=== PATIENT | female | born 1990 | race Caucasian/White ===

== ENCOUNTER 2018-12-30 09:28 | Outpatient (CLI) | payer BC, SELFPAY ==
[2018-12-30 11:11] LABS: TSH (W/Ref FT4) 1.81 uIU/mL (0.358-3.74)
== END 2018-12-30 09:48 ==
PROVIDERS: Visit Provider Nurse Practitioner Family
DX: N91.5 Oligomenorrhea, unspecified (principal)
CPT/HCPCS: 36415; 84443

== ENCOUNTER 2019-07-19 12:01 | Outpatient (CLI) | payer BC, MEDICAID, SELFPAY ==
[2019-07-19 12:49] LABS: Abs Immature Grans 0.01 k/cumm (0.0-0.09); Absolute Basophil Count 0.02 k/cumm (0.0-0.2); Absolute Eosinophil Count 0.08 k/cumm (0.0-0.7); Absolute Lymphocyte Count 1.92 k/cumm (1.2-3.4); Absolute Monocyte Count 0.31 k/cumm (0.11-0.7); Absolute Neutrophil Count 4.16 k/cumm (1.2-6.7); Basophils % 0.3; Eosinophils % 1.2; HCT 39.1 % (36.0-46.0); HGB 13.5 g/dL (12.0-15.5); Immature Grans % 0.2; Lymphocytes % 29.5; Mean Corp. HGB Concentration 34.5 g/dL (32.0-36.0); Mean Corpuscular Volume 89.9 fL (80-95); Mean Platelet Volume 9.2 fL (8.0-11.0); Monocytes % 4.8; Platelet Count 280 x1000/uL (130-400); RBC 4.35 m/cumm (4.00-5.20); RBC Distribution Width 11.8 % (11.7-14.6)
[2019-07-19 13:09] LABS: Glucose,1 Hr (Glucola) 111 mg/dL (80-140)
[2019-07-20 10:25] LABS: Hepatitis B Surface Ag Negative (Negative)
[2019-07-20 11:00] LABS: HIV-1/2 Ag & Ab Screen Negative (Negative)
[2019-07-20 11:16] LABS: Hepatitis C Ab w Rflx HCV PCR Negative (Negative)
[2019-07-20 11:50] LABS: Rubella IgG Ab (UVM) Positive (See Note); Varicella IgG Antibody Positive (See Note)
[2019-07-20 16:13] LABS: Syphilis Total Ab w/Reflex Nonreactive (Nonreactive)
== END 2019-07-19 12:21 ==
PROVIDERS: Visit Provider Advanced Practice Midwife
DX: Z34.91 Encounter for supervision of normal pregnancy, unspecified, first trimester (principal); Z11.4 Encounter for screening for human immunodeficiency virus [HIV]; Z11.59 Encounter for screening for other viral diseases; Z01.84 Encounter for antibody response examination
CPT/HCPCS: 36415; 80307; 82950; 86787; 86803; 86850; 86900; 86901; 87340; 87389; 85025; 86762; 86780

== ENCOUNTER 2019-07-19 14:23 | Outpatient (REF) | payer BC, MEDICAID, SELFPAY ==
[2019-07-19 13:30] LABS: *AMPHETAMINES SCREEN URINE Negative (Negative); *BARBITURATES SCREEN URINE Negative (Negative); *BENZODIAZEPINES SCREEN URINE Negative (Negative); Cannabinoids THC Negative (Negative); Cocaine Screen,Urine Negative (Negative); METHADONE URINE SCREEN Negative (Negative); OPIATES URINE SCREEN Negative (Negative)
[2019-07-19 13:37] LABS: Tricyclic Antidepressants Negative (Negative)
[2019-07-20 12:50] LABS: Chlamydia Result Negative (Negative)
[2019-07-20 16:11] LABS: GC Result Negative (Negative)
[2019-07-25 11:09] LABS: Buprenorphine Negative; Norbuprenorphine Negative
== END 2019-07-19 14:43 ==
LOC: LBN 14:23
PROVIDERS: Visit Provider Advanced Practice Midwife
DX: Z34.91 Encounter for supervision of normal pregnancy, unspecified, first trimester (principal); Z11.3 Encounter for screening for infections with a predominantly sexual mode of transmission
CPT/HCPCS: 80307; 87491; 87591; 87086; 87480; 87510; 87660

== ENCOUNTER 2019-10-05 02:29 | Outpatient (CLI) | payer BC, MEDICAID, SELFPAY ==
--- NOTE | 2019-10-05 13:45 | DI.US_ITS ---
EXAM: US OB 2-3 TRIMESTER CLINICAL HISTORY: ROUTINE PNC Z34.90 SUPERVISION NORMAL . TECHNIQUE: Transabdominal obstetrical ultrasound performed. COMPARISON: OB US 2-3 TRIMESTER TRANSABD*P from 09/05/2016 FINDINGS: Transabdominal obstetrical ultrasound performed. There is a single living intrauterine gestation. The estimated sonographic age is 19 weeks 1 day. T he fetus is in the breech position. No abnormalities are identified sonographically. he art rate is 152 beats per minute. The placenta is anterior. The tip of the placenta lies at the internal os. No evidence of previa. IMPRESSION: 1. Single live intrauterine gestation as above. 2. Low-lying placenta. The placental tip lies at the internal os. No evidence of previa. Monitorin g of placental location is recommended.
[2019-10-07 15:20] LABS: AFP 59.5 ng/mL; Calculated age at EDD 30 years; Cigarette smoking status non-Smoker; GA used in risk estimate Scan estimate; INHIBIN 163 pg/mL; IVF Pregnancy No; Initial or repeat testing Initial testing; Insulin dependent diabetes No; Maternal Weight 194 lbs; Number of Fetuses 1; Physician Phone Number 802-748-7300; Prev Down(T21)/Trisomy Pregnan No; Prev Pregnancy w/NTD No; RECOMMENDED FOLLOW UP None.; Results Summary Normal risk; hCG, TOTAL 11.4 IU/mL; uE3 1.79 ng/mL; uE3 MoM 1.21 MoM
== END 2019-10-05 02:49 ==
PROVIDERS: PCP Advanced Practice Midwife; Visit Provider Advanced Practice Midwife
DX: O44.42 Low lying placenta NOS or without hemorrhage, second trimester (principal); Z36.89 Encounter for other specified antenatal screening; Z3A.19 19 weeks gestation of pregnancy
CPT/HCPCS: 36415; 81511; 76805

== ENCOUNTER 2019-11-02 10:28 | Outpatient (REF) | payer BC, MEDICAID, SELFPAY | END 2019-11-02 10:48 | LOC: LBN 10:28 | PROVIDERS: PCP Advanced Practice Midwife; Visit Provider Advanced Practice Midwife | DX: Z34.92 Encounter for supervision of normal pregnancy, unspecified, second trimester (principal); Z87.440 Personal history of urinary (tract) infections | CPT/HCPCS: 87086 ==

== ENCOUNTER 2019-12-08 00:26 | Outpatient (CLI) | payer BC, MEDICAID, SELFPAY ==
--- NOTE | 2019-12-08 10:27 | DI.US_ITS ---
EXAM: US OB F/U FACIAL/LVOT/RVOT CLINICAL HISTORY: placenta location, f/up for low lying,044.42,modified to protocol. COMPARISON: US OB 2-3 TRIMESTER from 10/05/2019 TECHNIQUE: Transabdominal obstetrical ultrasound was performed. FINDINGS: Sonographic images demonstrate a single intrauterine gestation in cephalic position. Placenta: The placenta is anterior. The edge of the placenta is at least 5 centimeters from the inte rnal os. heart rate motion is Dopplered at: 157 bpm. Cervical length 4.3 cm. Amount of fluid is within normal limits. IMPRESSION: The placenta is no longer low lying, measuring greater than 5 cm from the os.. DATA REPOSITORY:
== END 2019-12-08 00:46 ==
PROVIDERS: PCP Advanced Practice Midwife; Visit Provider Advanced Practice Midwife
DX: O44.42 Low lying placenta NOS or without hemorrhage, second trimester (principal); Z36.2 Encounter for other antenatal screening follow-up; Z3A.27 27 weeks gestation of pregnancy
CPT/HCPCS: 76815

== ENCOUNTER 2019-12-08 10:28 | Outpatient (REF) | payer BC, MEDICAID, SELFPAY ==
[2019-12-08 10:53] LABS: Glucose,1 Hr (Glucola) 150 mg/dL (80-140)
[2019-12-08 10:59] LABS: HCT 35.2 % (36.0-46.0); HGB 11.6 g/dL (12.0-15.5); Mean Corpuscular Hemoglobin 30.4 pg (27.0-33.0); Mean Corpuscular Volume 92.1 fL (80-95); Mean Platelet Volume 9.6 fL (8.0-11.0); Platelet Count 262 x1000/uL (130-400); RBC 3.82 m/cumm (4.00-5.20); RBC Distribution Width 12.9 % (11.7-14.6); White Blood Cell Count 8.82 k/cumm (4.4-10.8)
== END 2019-12-08 10:48 ==
LOC: LBN 10:28
PROVIDERS: PCP Advanced Practice Midwife; Visit Provider Advanced Practice Midwife
DX: Z34.92 Encounter for supervision of normal pregnancy, unspecified, second trimester (principal)
CPT/HCPCS: 82950; 85027

== ENCOUNTER 2019-12-12 08:17 | Outpatient (CLI) | payer BC, MEDICAID, SELFPAY ==
[2019-12-12 10:11] LABS: Glucose 1 Hour 182 mg/dL
[2019-12-12 12:42] LABS: Glucose 3 Hour 156 mg/dL
== END 2019-12-12 08:37 ==
PROVIDERS: Advanced Practice Midwife; PCP Advanced Practice Midwife; Visit Provider Advanced Practice Midwife
DX: R73.09 Other abnormal glucose (principal)
CPT/HCPCS: 82951

== ENCOUNTER 2019-12-28 01:55 | Outpatient (CLI) | payer BC, MEDICAID, SELFPAY ==
--- NOTE | 2019-12-28 06:30 | DI.US_ITS ---
EXAM: US OB BILL WEIGHT CLINICAL HISTORY: GESTATIONAL DIABETES, O24.419 TECHNIQUE: Ultrasound performed using standard protocol. COMPARISON: US US OB F/U FACIAL/LVOT/RVOT from 12/08/2019 FINDINGS: Ob ultrasound was performed utilizing 3rd trimester protocol. There is a single fetus in cephalic pr esentation. There is visually a normal quantity of amniotic fluid and the BILL is 18. Placenta is anterior with no evidence of placenta previa. biometry is consistent with gestational age of 31 weeks 2 days and EDC of 02/27/2020. The estimated weight is 1786 grams which is at the 66th percentile for predicted gestational ag e. heart rate was 137 BPM. IMPRESSION: DATA REPOSITORY:
--- NOTE | 2020-01-03 15:17 | DIABASSESS_ITS ---
DESCRIPTION/ASSESSMENT: Barbra followed up with sql report writer. Food Log continues to to indicate higher then recommended intakes of simple carbohydrates such as corn, rolls, cupcakes, sweet potatoes and ice cream. Fasting sugars routinely > 100 mg/dl, post pranial sugars running around 140 mg/dl. Barbra is following [id number] kcal meal plan with 175-200 g carbohydrate with focus of consistent carb intake at all meals. She does not have routine exercise. Educated her on importance of exercise in treating GDM. Encouraged her to walk 20 minutes daily and to follow her meal plan. INTERVENTION: Educated Barbra on importance of exercise and carb counting for treating GDM along with insulin. Reviewed risks of elevated fasting sugars to and importance of reducing intake of high sugar foods and to balance carbohydrates with adequate amounts of protein and vegetables. ACTION PLAN: Continue 2200 kcal diet plan walk 20 minutes daily continue to follow up with MD/RD with blood sugar and diet logs
--- NOTE | 2020-01-12 15:27 | W.DIABETESNO ---
Date of service: 01/12/20 Time of Service: 15:28 Diabetes Note NOTE: Spok with Barbra about her diet and GDM. She is 32 weeks , up 20 lbs. She has BMI>30, Family Hx of DM and failed glucola, had 3 positives with 3 hr GTT. She reports that her fasting numbers have improved but continue to run 102-105 mg/dl, post prandial > 135 gm/dl. She attributes high numbers due to eating burgers, fries, birthday cake. She has not started to walk daily. She is taking 6 units of insulin in Am, 16 units HS. I encouraged her to limit simple carbs and gave her meal suggestions and problem solving for when she goes to cook outs. Encouraged her to walk 10 min twice daily. Continues to be compliant with taking BS, taking insulin but is having a hard time following optimal meal plan for optimal blood sugar control and unable to maintain her blood sugars in ideal ranges. May need additional insulin if unable to make diet changes. Will continue to support and encourage. Time Spent in Nutritional Counseling and Treatment: 10 min
== END 2019-12-28 02:15 ==
PROVIDERS: PCP Advanced Practice Midwife; Visit Provider Obstetrics & Gynecology
DX: O24.419 Gestational diabetes mellitus in pregnancy, unspecified control (principal); Z3A.31 31 weeks gestation of pregnancy
CPT/HCPCS: 76816

== ENCOUNTER 2020-01-27 02:08 | Outpatient (CLI) | payer BC, MEDICAID, SELFPAY ==
--- NOTE | 2020-01-23 14:21 | W.DIABETESNO ---
Date of service: 01/23/20 Time of Service: 14:21 Diabetes Note NOTE: Spoke to Barbra. GDM 35 weeks. Insulin adjusted at recent visit. Now taking 10 units NPH SQ AM, 20 u NPH SQ PM. Fasting BS improved and ranging from 88-104 mg/dl. PP readings at 1 hour, ranging from 103-174 mg/dl. High PP BS reading correspond to high carb meals. Reviewed optimal carb amounts per meal and encouraged walking after meals for 10 min to help reduce PP levels. Will continue to encourage and support. Forwarded BS logs to team. Next visit 01/29/20 at 1400. Time Spent in Nutritional Counseling and Treatment: 10 min
--- NOTE | 2020-01-27 08:00 | DI.US_ITS ---
EXAM: US OB BILL WEIGHT CLINICAL HISTORY: growth,O24.419. TECHNIQUE: Transabdominal obstetrical ultrasound performed. COMPARISON: US US OB BILL WEIGHT from 12/28/2019 FINDINGS: There is a single intrauterine gestation. Estimated sonographic age is 35 weeks 4 days. The fetus i s in the cephalic presentation. The heart rate is 152 beats per minute. A please anatom ic evaluation was not performed at this examination. Amniotic fluid index is 16.6 cm. The placenta is unremarkable. Estimated weight is 2750 g which is the 68th percentile. IMPRESSION: 1. Single live intrauterine gestation as above. DATA REPOSITORY:
--- NOTE | 2020-01-27 14:53 | DIABASSESS_ITS ---
Met with Barbra at [facility]. She is 34 weeks with GDM. Insulin increased to 12 units NPH AM, 22 units pm this week. Fasting sugars range from 91-106 mg/dl. Post pranial BS range from 104-173 mg/dl. Elevated blood sugars noted after high carbohydrate content meals. Continue to encourage following 2000- 2200 kcal GDM meal plan, avoid high glycemic foods and encourage daily exercise. Barbra continues to choose to include high glycemic foods (such as cheese burger with poutine, Ice cream, chicken nuggets and fries, Tuna mac and other desserts. She also does not engage in daily exercise. Meeting with MD today to discuss potential increase in insulin as many of her readings are out of range. Reviewed dangers to herself/baby with elevated blood sugars and risks for developing DM in future if continues to include these foods on regular basis. Will continue to follow and be available prn.
== END 2020-01-27 02:28 ==
PROVIDERS: PCP Nurse Practitioner Family; Visit Provider Obstetrics & Gynecology
DX: O24.419 Gestational diabetes mellitus in pregnancy, unspecified control (principal); Z3A.35 35 weeks gestation of pregnancy
CPT/HCPCS: 76816

== ENCOUNTER 2020-01-31 10:38 | Outpatient (CLI) | payer BC, MEDICAID, SELFPAY | END 2020-01-31 10:58 | PROVIDERS: PCP Nurse Practitioner Family; Visit Provider Obstetrics & Gynecology | DX: O24.415 Gestational diabetes mellitus in pregnancy, controlled by oral hypoglycemic drugs (principal); Z3A.35 35 weeks gestation of pregnancy | CPT/HCPCS: 59025 ==

== ENCOUNTER 2020-02-03 11:11 | Outpatient (CLI) | payer BC, MEDICAID, SELFPAY | END 2020-02-03 11:31 | PROVIDERS: PCP Nurse Practitioner Family; Visit Provider Obstetrics & Gynecology | DX: O24.414 Gestational diabetes mellitus in pregnancy, insulin controlled (principal); Z3A.36 36 weeks gestation of pregnancy | CPT/HCPCS: 59025; 87081 ==

== ENCOUNTER 2020-02-07 10:12 | Outpatient (CLI) | payer BC, MEDICAID, SELFPAY | END 2020-02-07 10:32 | PROVIDERS: PCP Nurse Practitioner Family; Visit Provider Obstetrics & Gynecology Gynecology | DX: O24.414 Gestational diabetes mellitus in pregnancy, insulin controlled (principal); Z3A.36 36 weeks gestation of pregnancy | CPT/HCPCS: 59025 ==

== ENCOUNTER 2020-02-10 15:30 | Inpatient (IN) | payer BC, MEDICAID, SELFPAY ==
[2020-02-10] MEDS: Lactated Ringers 500 ML IV (17:23)
[2020-02-10 17:25] LABS: HCT 36.9 % (36.0-46.0); HGB 12.7 g/dL (12.0-15.5); Mean Corp. HGB Concentration 34.4 g/dL (32.0-36.0); Mean Corpuscular Hemoglobin 31.1 pg (27.0-33.0); Mean Corpuscular Volume 90.2 fL (80-95); Mean Platelet Volume 9.9 fL (8.0-11.0); Platelet Count 266 x1000/uL (130-400); RBC 4.09 m/cumm (4.00-5.20); White Blood Cell Count 13.63 k/cumm (4.4-10.8)
[2020-02-10] MEDS: FentaNYL/ROPIvacaine 2 mcg/ml and 0.1% 200 ML CADD Cassette EP (17:50)
[2020-02-10] MEDS: Acetaminophen 325 MG TAB 650 MG PO (22:52)
[2020-02-10] MEDS: Ibuprofen 600 MG TAB PO (22:52)
[2020-02-11] MEDS: Acetaminophen 325 MG TAB 650 MG PO ×3 (04:36→21:23)
[2020-02-11] MEDS: Ibuprofen 600 MG TAB PO ×3 (07:33→21:23)
--- NOTE | 2020-02-11 10:08 | PDOC.ANES ---
Date of service: 02/11/20 Time of Service: 10:09 Anesthesia Note Report Anesthesia Note: Called to evaluate intrathecal catheter for concerns of leak and spinal headache. Entered room to find pt. sitting up smiling holding . Pt. states mid forehead has a very mild headache that does not change with change of posture. Pt. did have a positive dural puncture with epidrual attempt where catheter was placed into intrathecal space. Noted small leak at the cap at the distal end of the spinal catheter, dressing/insertion site dry and dressed. Removed filter, cleaned connection and placed occlusive cap on catheter which stopped small leak. Plan is to remove catheter later tonight and then begin to assess for spinal headache PDPH. I discussed treatment options with patient who would like to try a sphenopalatine block first and then an epidural blood patch if needed.
[2020-02-11 13:55] LABS: COVID-19 RT-PCR UVMMC Result Negative (Negative)
[2020-02-11] MEDS: Docusate Sodium 100 MG CAP PO (17:33)
--- NOTE | 2020-02-11 18:41 | W.PM.PROGNOT ---
Date of Service Date of service: 02/11/20 Time of Service: 18:41 Assessment and Plan Assessment and plan (1) (normal spontaneous vaginal delivery): Status: Acute Assessment and plan: Uncomplicated course. Plan for discharge home tomorrow. (2) Gestational diabetes: Status: Acute Assessment and plan: Insulin was discontinued. We will continue check blood sugars postprandial during this admission. Plan for 2-hour GTT at 6 weeks Subjective Subjective Interval history since last seen: Doing well. No pain today. Minimal lochia No problems or concerns. Objective Objective Clinical Data: Vital Signs Pain Level 4 02/11/20 12:29 Intake & Output 02/10/20 02/11/20 02/11/20 23:59 11:59 23:59 Intake Total 500 / 500 Balance 500 / 500 Weight 208 lb Intake: IV 500 / 500 Laboratory Results WBC 13.63 k/cumm (4.4-10.8) H 02/10/20 17:15 RBC 4.09 m/cumm (4.00-5.20) 02/10/20 17:15 Hgb 12.7 g/dL (12.0-15.5) 02/10/20 17:15 Hct 36.9 % (36.0-46.0) 02/10/20 17:15 MCV 90.2 fL (80-95) 02/10/20 17:15 MCH 31.1 pg (27.0-33.0) 02/10/20 17:15 MCHC 34.4 g/dL (32.0-36.0) 02/10/20 17:15 RDW 13.0 % (11.7-14.6) 02/10/20 17:15 Plt Count 266 x1000/uL (130-400) 02/10/20 17:15 MPV 9.9 fL (8.0-11.0) 02/10/20 17:15 COVID-19 PCR Negative (Negative) 02/10/20 18:30 Nasopharyn COVID-19 PCR Not Applicable 02/10/20 18:30 Ref Test Perform Site [facility] 02/10/20 18:30 Patient ABO/Rh AB Positive 02/10/20 17:15 Antibody Screen Negative 02/10/20 17:15
--- NOTE | 2020-02-11 18:45 | PDOC.ANES ---
Date of service: 02/11/20 Time of Service: 18:46 Anesthesia Note Report Anesthesia Note: As planned and about 24 hours after placement of Intrathecal catheter placed for labor analgesia due to accidental dural puncture, intrathecal catheter has been removed with tip intact and gauze/bandaide placed over site. All motor and sensory exam has returned to baseline as intrathecal infusion was discontinued after delivery last night. Pt. has been ambulatory since and doing well with a 0-1/10 forehead headache at times for which she has been taking tylenol for with good results. Pt. advised to rest in bed for 2 hours and to minimize any activity that would result in abdominal strain and increased intrathecal pressure. Pt. will notify RN who will call anesthesia for moderate to severe headache, especially if worse when sitting/standing or for any motor/sensory deficits if noted. In the event that a PDPH requires treatment, Barbra would like to start with conservative measures-->sphenopalatine block-->Epidural blood patch if truly needed. If she is discharged, she is aware that she should call and speak to anesthesia if a concerning headache develops while at home. Barbra is on board and verbalized understanding on plan. Nursing staff also aware of plan.
[2020-02-12] MEDS: Ibuprofen 600 MG TAB PO ×2 (02:17→09:43)
[2020-02-12] MEDS: Acetaminophen 325 MG TAB 650 MG PO ×2 (02:17→09:43)
[2020-02-12] MEDS: Docusate Sodium 100 MG CAP PO (09:47)
--- NOTE | 2020-02-12 10:02 | W.PM.HP.N ---
Date of service: 02/10/20 Time of Service: 17:00 Assessment and Plan Assessment and plan (1) Normal labor: Status: Acute Assessment and plan: Admit for managment of active labor. (2) Gestational diabetes: Status: Acute History of Present Illness History of Present Illness Chief Complaint: Spontaneous labor Narrative: 29 year old @ 38 weeks gestation presented with regular and painful contractions with some light vaginal spotting beginning earlier this morning. On initial examination cx was 4 cm in dilatation and the patient progressed spontaneously thereafter. [facility] Social History Smoking/Tobacco Use Status: Never Household members: spouse, children and other Details: H-Jalen. 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 Date GA/Weeks # Outcome Route Wgt Sex Labor Lgth Anesthesia Location Prov Complic 01/05/17 35 No Successful vaginal 5 lb 13 oz Female [facility] [place] Delivery Date: 01/05/17 Carine Roe Home Medications and Allergies Home Medications Medication Instructions Recorded Confirmed Type prenat.vits,thomas,czg-tovk-uchul 1 tab PO DAILY #90 tab 06/30/19 01/27/20 Rx blood-glucose meter #1 each 12/12/19 01/27/20 Rx insulin NPH isoph U-100 human 100 6 unit SC QAM #3 ml 01/06/20 01/27/20 Rx unit/mL (3 mL) subcutaneous pen insulin NPH isoph U-100 human 100 See Rx Instructions SC .COMPLEX 01/06/20 01/27/20 Rx unit/mL (3 mL) subcutaneous pen #15 ml pen needle, diabetic 32 gauge x #200 each 01/30/20 Rx blood sugar diagnostic #50 each 02/02/20 Rx blood sugar diagnostic #50 each 02/02/20 Rx lancets 28 gauge #50 each 02/02/20 Rx Allergies Allergy/AdvReac Type Severity Reaction Status Date / Time SEASONAL ALLERGIES AdvReac Intermediate Uncoded 01/27/20 13:40 Exam Other: Cx /-1 Results Labs Result diagrams: 02/10/20 17:15 Labs: Laboratory Results - last 24 hr 02/10/20 18:30 COVID-19 PCR Negative Nasopharyn COVID-19 PCR Not Applicable Ref Test Perform Site [facility] COVID-19 Screening In the past 14 days, have you traveled outside of [place]?: NO
--- NOTE | 2020-02-12 10:21 | W.PM.PROGNOT ---
Date of Service Date of service: 02/12/20 Time of Service: 10:21 Assessment and Plan Assessment and plan (1) (normal spontaneous vaginal delivery): Status: Acute Assessment and plan: S/P Plan for discharge home today. Will discontinue blood sugars and management of diabetes. Plan for 2 hour GTT at 6 weeks. Subjective Subjective Interval history since last seen: Doing well this morning. Does have a moderate headache like from epidural. Has been seen by anesthesia and is felt suitable for discharge home. Objective Objective Clinical Data: Vital Signs Pain Level 4 02/12/20 09:43 Intake & Output 02/11/20 02/11/20 02/12/20 11:59 23:59 11:59 Intake Total 500 / 500 Balance 500 / 500 Intake: IV 500 / 500 Laboratory Results WBC 13.63 k/cumm (4.4-10.8) H 02/10/20 17:15 RBC 4.09 m/cumm (4.00-5.20) 02/10/20 17:15 Hgb 12.7 g/dL (12.0-15.5) 02/10/20 17:15 Hct 36.9 % (36.0-46.0) 02/10/20 17:15 MCV 90.2 fL (80-95) 02/10/20 17:15 MCH 31.1 pg (27.0-33.0) 02/10/20 17:15 MCHC 34.4 g/dL (32.0-36.0) 02/10/20 17:15 RDW 13.0 % (11.7-14.6) 02/10/20 17:15 Plt Count 266 x1000/uL (130-400) 02/10/20 17:15 MPV 9.9 fL (8.0-11.0) 02/10/20 17:15 COVID-19 PCR Negative (Negative) 02/10/20 18:30 Nasopharyn COVID-19 PCR Not Applicable 02/10/20 18:30 [facility] 02/10/[facility] 18:30 Patient ABO/Rh AB Positive 02/10/20 17:15 Antibody Screen Negative 02/10/20 17:15
== END 2020-02-12 12:15 | disposition home or self-care (01) | DRG 805 ==
LOC: OBS 16:09
PROVIDERS: Admitting Provider Obstetrics & Gynecology; PCP Nurse Practitioner Family; Visit Provider Obstetrics & Gynecology
DX: O24.424 Gestational diabetes mellitus in childbirth, insulin controlled (principal); O45.93 Premature separation of placenta, unspecified, third trimester; Z37.0 Single live birth; Z3A.37 37 weeks gestation of pregnancy; Z67.30 Type AB blood, Rh positive; Z87.51 Personal history of pre-term labor
CPT/HCPCS: 85027; 86850; 86900; 86901; 99223; 99233; U0003; 59025; G0378

== ENCOUNTER 2020-03-17 07:30 | Outpatient (CLI) | payer BC, MEDICAID, SELFPAY ==
[2020-03-18 17:25] LABS: COVID-19 RT-PCR Result NEGATIVE (Negative)
== END 2020-03-17 07:50 ==
PROVIDERS: PCP Nurse Practitioner Family; Visit Provider Obstetrics & Gynecology
DX: Z01.818 Encounter for other preprocedural examination (principal)
CPT/HCPCS: U0003

== ENCOUNTER 2020-03-19 02:05 | Outpatient (CLI) | payer BC, MEDICAID, SELFPAY | END 2020-03-19 02:25 | PROVIDERS: PCP Nurse Practitioner Family; Visit Provider Obstetrics & Gynecology | DX: Z01.818 Encounter for other preprocedural examination (principal) | CPT/HCPCS: 36415; 86850; 86900; 86901 ==

== ENCOUNTER 2020-03-21 07:39 | Day surgery (SDC) | payer BC, MEDICAID, SELFPAY ==
[2020-03-21] VITALS (8 sets, daily range): BP systolic 97–111; BP diastolic 59–77; PULSE 50–95; RESP 14–24; TEMP 36.2–36.4; O2SAT 94–98
[2020-03-21] MEDS: Lactated Ringers 1,000 ML 125 ML IV (08:26)
[2020-03-21] MEDS: Acetaminophen 500 MG TAB 1000 MG PO (08:57)
--- NOTE | 2020-03-21 09:35 | FALL_PTH ---
PATIENT: Barbra [place] LOC: [facility] U#:[id number] AGE/SX: 29/F ROOM: RE03/21/[address]: Lucius Gross MD : 1990 BED: DIS: 03/21/2020 SPEC #: [id number] RECD: 03/21/20 12:51 STATUS: JUDY RE #: [id number] CARIN: 03/21/20 09:[address]: Lucius Gross DEPT: Surgical Specimen RECD BY: Mary Martinez ENTERED: 03/21/20 12:52 SP TYPE: Fall OTHR DR: Devon Bajwa Tissues: 1 - FALLOPIAN TUBE (STERILIZATION) 2 - FALLOPIAN TUBE (STERILIZATION) Procedures: GROSS AND MICRO LEVEL 2 Comments: [id number]
[2020-03-21] MEDS: Bupivacaine 0.25% Pres-Free 30 ML VIAL (09:38)
--- NOTE | 2020-03-21 09:49 | ROE_ITS ---
Date of service: 03/21/20 Time of Service: 09:49 Operative Note Operative Note DATE OF PROCEDURE: 03/21/20 PRE-OP DIAGNOSIS: Multiparity and desire for permanent sterilization POST-OP DIAGNOSIS: same PROCEDURE: Laparoscopic bilateral salpingectomy SURGEON: Lucius Gross ASSISTING SURGEON: Ирина Markham ANESTHESIA: GETA ESTIMATED BLOOD LOSS: 10 PATHOLOGY: other (Bilateral fallopian tubes) COMPLICATIONS: None Patient was transported to: PACU Patient's condition: stable Findings: Normal laparoscopic examination Procedure Description: The patient was taken to the operating room and after adequate general anesthesia was obtained the patient had been placed in supine position. The patient prepped and draped in usual sterile manner. The skin and subcutaneous tissues at the umbilicus were infiltrated with 0.25% Marcaine solution. A small infraumbilical skin incision was then made with a #15 blade scalpel. Sharp dissection was carried down to the underlying layer fascia. The fascia was grasped and elevated with 2 Jana clamps and incised sharply with scalpel. The peritoneum was entered sharply with a hemostat. S retractors were placed. 2 sutures of 0 Vicryl were placed on either side of the fascial incision. A 10 mm balloon trocar was placed through the incision. A pneumop eritoneum to approximately 15 mmHg was established. Two 5 mm ports were placed under direct visualization in the right and left lower quadrants. The right fallopian tube was grasped and elevated with an atraumatic grasper. Dissection was carried across the mesosalpinx with the LigaSure device and care to the proximal fallopian tube which was transected. The fallopian tube was removed from the abdomen. Excellent hemostasis noted. A similar procedure was carried out on the opposite side. The 5 mm trochars were removed under direct visualization. The abdomen was desufflated and the umbilical port was removed. The fascia was closed at the umbilicus with the previously placed sutures of 0 Vicryl. Two additional sutures in [id number] fashion of 0 Vicryl were used to complete the repair. Each skin incision was closed with interrupted sutures of 4 Monocryl and Dermabond was applied. The procedure was concluded at this point. Sponge, lap and needle counts were correct at the conclusion of the procedure. The patient tolerated the procedure well and was transferred to PACU in stable condition.
--- NOTE | 2020-03-28 09:24 | W.PM.OP ---
Date of service: 03/21/20 Time of Service: 14:00 Operative Note Operative Note DATE OF PROCEDURE: 03/21/20 POST-OP DIAGNOSIS: same PROCEDURE: Laparoscopic bilateral salpingectomy SURGEON: Lucius Gross ASSISTING SURGEON: Ирина Markham ANESTHESIA: GETA ESTIMATED BLOOD LOSS: 10 PATHOLOGY: other (Bilateral fallopian tubes) COMPLICATIONS: None Patient was transported to: PACU Patient's condition: stable Implants: Laparoscopic bilateral salpingectomy Procedure Description: The patient was taken to the operating room and after adequate general anesthesia the patient had been placed in the supine position. The patient was prepped and draped in the usual sterile manner. The skin and subcutaneous tissues at the umbilicus were infiltrated with 0.25% Marcaine solution. A small infraumbilical skin incision was then made with a #15 scalpel. Sharp dissection was carried down to the underlying layer fascia. The fascia was grasped and elevated with 2 Jana clamps. The fascia was incised with a scalpel and the peritoneum was entered with hemostats. Two S retractors were placed. Two sutures of 0 Vicryl placed on either side of the fascial incision. A 10 mm balloon trocar was inserted and the abdomen was insufflated approximately 15 mmHg with carbon dioxide. Two 5 mm ports were placed in the right lower and left lower quadrants both under direct visualization. Dissection was first carried across the left mesosalpinx with the LigaSure device and taken to the proximal tube which was transected. The tube was removed from the abdomen. Excellent hemostasis was noted. Attention was then turned to the right fallopian tube were again dissection was carried across the mesosalpinx with the LigaSure. The tube was coagulated and transected at its proximately end and the tube was removed from the abdomen. Again excellent hemostasis was noted. The 5 mm trochars were removed under direct visualization. The abdomen was desufflated and the umbilical port was removed. The fascia at the umbilicus was closed with the 2 previously placed sutures of 0 Vicryl. Each skin incision was closed with interrupted sutures of 4 Monocryl and Dermabond was applied. The procedure was concluded at this point. Sponge, lap and needle counts were correct at the conclusion of the procedure. The patient was transferred to PACU in stable condition.
== END 2020-03-21 12:15 | disposition home or self-care (01) ==
PROVIDERS: PCP Nurse Practitioner Family; Visit Provider Obstetrics & Gynecology
PROC: (CPT 58661; principal; 2020-03-21 09:00)
DX: Z30.2 Encounter for sterilization (principal)
CPT/HCPCS: 58661; 81025; 88302; J1100; J1885; J2001; J2405; J3475

== ENCOUNTER → 2023-12-15 03:55 | Outpatient (CLI) | payer BC, SELFPAY ==
--- NOTE | 2023-12-15 13:36 | DI.MAMMO_ITS ---
Exam(s) US BREAST RT LIMITED MG MAMMO DIAGNOSTIC BI EXAM: MG MAMMO DIAGNOSTIC BI CLINICAL HISTORY: Right breast lump,PALPABLE, N63.10. COMPARISON: US US BREAST RT LIMITED from 12/15/2023 . baseline examination. TECHNIQUE: Craniocaudal and mediolateral oblique Full Field Digital Mammography views of both breast s with Computer Aided Diagnosis followed by Tomosynthesis and right breast ultrasound. FINDINGS: Mammography/Tomosynthesis: Masses/Architectural Distortion: None seen. Microcalcifications: No suspicious pleomorphic-type are seen. Skin Thickening/Nipple Retraction: None. Right breast US: Echotexture: Normal appearance of the glandular tissue. Shadowing: No suspicious foci. Cyst: Simple cyst measuring 11 x 4 by 10 millimeters. Solid lesions: None seen. Ductal dilation: None. IMPRESSION: 1. No evidence of malignancy is noted. 2. Unless there is more urgent need, follow-up screening mammography is recommended, as per [place] [employer] guidelines. BI-RADS Category 2 - Benign Findings Breast Density - Category B - Scattered areas of fibroglandular density Breast density category C or D implies that the patient has dense breast tissue. Dense breast tissue is very common and is not abnormal but dense breast tissue can make it harder to find cancer on a ma mmogram. Also, dense breast tissue may increase their breast cancer risk. This information about the result of the mammogram report was provided to the patient to raise their awareness. Use this report when you speak with the patient about their risks for breast cancer, which includes their family hist ory. At that time, you may recommend for more screening tests (Ultrasound or MRI) as they might be us eful based on their risk. A negative radiographic report should not delay biopsy if a dominant or clinically suspicious mass is present. Up to ten percent of cancers are not identified on mammography. A negative report may reinforce clinical impression. Adenosis and dense breasts may obscure an underlying neoplasm. False positive reports average 6 to 10%. Patient will receive a letter notifying them of these results.
== END ==
PROVIDERS: PCP Student in an Organized Health Care Education/Training Program; Visit Provider Obstetrics & Gynecology
DX: N63.13 Unspecified lump in the right breast, lower outer quadrant; Z12.31 Encounter for screening mammogram for malignant neoplasm of breast
CPT/HCPCS: 76642; 77062; 77066; G0279

== ENCOUNTER 2024-07-22 15:22 | Outpatient (REF) | payer BC, SELFPAY ==
[2024-07-22 19:15] LABS: Abs Immature Grans 0.03 10^3/uL (0.0-0.06); Absolute Basophil Count 0.04 10^3/uL (0.0-0.2); Absolute Eosinophil Count 0.09 10^3/uL (0.0-0.7); Absolute Lymphocyte Count 2.08 10^3/uL (1.2-3.4); Absolute Monocyte Count 0.46 10^3/uL (0.1-0.8); Absolute Neutrophil Count 4.64 10^3/uL (1.2-6.7); Basophils % 0.5 %; Eosinophils % 1.2 %; HCT 39.1 % (36.0-46.0); HGB 13.2 g/dL (11.2-15.7); Immature Grans % 0.4 %; Lymphocytes % 28.3 %; MCH 30.8 pg (27.0-33.0); MCHC 33.8 % (32.0-36.0); MCV 91 fL (80-95); MPV 10.1 fL (8.0-11.0); Monocytes % 6.3 %; Neutrophils % 63.3 %; Platelet Count 229 10^3/uL (130-400); RBC 4.28 10^6/uL (3.93-5.22); RDW 11.4 % (11.7-14.6); RDW-SD 38.5 fL; WBC 7.34 10^3/uL (4.4-10.8)
[2024-07-22 19:36] LABS: ALT 30 U/L (14-59); AST 19 U/L (15-37); Alkaline Phosphatase 59 U/L (46-116); Anion Gap 7.3 mmol/L (3-11); BUN 26 mg/dL (7-18); Bilirubin, Total 0.48 mg/dL (0.2-1.0); CO2 28.7 mmol/L (21.0-32.0); CREATININE 0.8 mg/dL (0.55-1.02); Calcium 9.4 mg/dL (8.5-10.1); Calculated LDL 81 mg/dL (<100); Chloride 105 mmol/L (98-107); Cholesterol 158 mg/dL (<200); Estimated GFR 98.48 (mL/min/1.73m2); Glucose 93 mg/dL (74-106); HDL Cholesterol 64 mg/dL (40-60); Sodium 141 mmol/L (136-145); TSH 1.49 uIU/mL (0.36-3.74); Total Protein 7.2 g/dL (6.4-8.2); Triglyceride 69 mg/dL (<150)
== END 2024-07-22 15:23 | disposition home or self-care (01) ==
LOC: NCHCN 15:22
PROVIDERS: PCP Student in an Organized Health Care Education/Training Program; Visit Provider Student in an Organized Health Care Education/Training Program
DX: Z13.228 Encounter for screening for other metabolic disorders (principal); Z13.220 Encounter for screening for lipoid disorders; Z85.6 Personal history of leukemia
CPT/HCPCS: 80053; 80061; 84443; 85025

== ENCOUNTER 2024-12-01 10:34 | Outpatient (REF) | payer BC, SELFPAY ==
[2024-12-01 11:11] LABS: Hemoglobin A1C 5.3 % (<5.7)
== END 2024-12-01 10:35 | disposition home or self-care (01) ==
LOC: LBN 10:34
PROVIDERS: PCP Student in an Organized Health Care Education/Training Program; Visit Provider Obstetrics & Gynecology
DX: Z86.32 Personal history of gestational diabetes (principal); Z12.4 Encounter for screening for malignant neoplasm of cervix
CPT/HCPCS: 36415; 88142; 83036; 87624

== ENCOUNTER 2025-08-11 14:04 | Outpatient (REF) | payer BC, SELFPAY ==
[2025-08-11 15:26] LABS: HCT 40.5 % (36.0-46.0); HGB 13.4 g/dL (11.2-15.7); MCH 29.8 pg (27.0-33.0); MCHC 33.1 % (32.0-36.0); MCV 90 fL (80-95); MPV 9.9 fL (8.0-11.0); Platelet Count 236 10^3/uL (130-400); RBC 4.49 10^6/uL (3.93-5.22); RDW 11.5 % (11.7-14.6); RDW-SD 38.3 fL; WBC 6.19 10^3/uL (4.4-10.8)
[2025-08-11 15:56] LABS: ALT 25 U/L (10-49); AST 22 U/L (<34); Albumin 4.4 g/dL (3.2-5.0); Alkaline Phosphatase 60 U/L (46-116); Anion Gap 8.8 mmol/L (3-11); BUN 14 mg/dL (9-23); Bilirubin, Total 0.6 mg/dL (0.2-1.2); CO2 27.2 mmol/L (20.0-31.0); Calcium 9.5 mg/dL (8.3-10.6); Chloride 106 mmol/L (98-107); Glucose 83 mg/dL (74-106); Potassium 4.0 mmol/L (3.5-5.1); Sodium 142 mmol/L (136-145); Total Protein 7.2 g/dL (5.7-8.2)
[2025-08-11 16:00] LABS: TSH (W/Ref FT4) 1.78 uIU/mL (0.55-4.78)
== END 2025-08-11 14:05 | disposition home or self-care (01) ==
LOC: NCHCN 14:04
PROVIDERS: PCP Student in an Organized Health Care Education/Training Program
DX: Z01.89 Encounter for other specified special examinations (principal)
CPT/HCPCS: 80053; 85027; 84443